=== PATIENT | male | born 1960 | race Caucasian/White ===

== ENCOUNTER 2016-08-13 01:52 | Emergency (ER) | payer OTHER ==
--- NOTE | 2016-08-13 05:04 | ED CLINICAL REPORT ---
Clinical Report - Physicians/Mid Levels [facility] [address] [place] [address] 08/13/2016 1:54 Patient: LAURENT PERES Time Seen: 02:20. Arrived- By private vehicle. Historian- patient. HISTORY OF PRESENT ILLNESS Chief Complaint: UPPER EXTREMITY SWELLING and ; PAIN. Modifying factors- worsened by movement of arm. Not made better by anything. Severity is described as being moderate in degree. The quality is noted to be "pain". This started several days ago and is still present and now worse. Symptoms located in the area of the left arm, left forearm, left wrist and left hand. No chest pain, difficulty breathing, sensory loss or motor loss. He has had redness and swelling. (PT does admit that he has not been elevating the arm much, because it hurts his elbow.). Patient notes an injury (PT is 4 days post-op after a wrist surgery. Pt states he felt as though the splint had become too tight, and now, has noticed swelling and erythema of the arm above the splint/dressing.). Similar symptoms previously: None. Recent medical care: The patient was seen recently at another facility. ( Pt's surgeon was Dr. Paul.). REVIEW OF SYSTEMS No fever, chills, eye discomfort, headache or sore throat. No cough, skin rash, enlarged lymph nodes, neck pain or abdominal pain. No nausea, vomiting, diarrhea, black stools or difficulty with urination. No urinary frequency, hematuria or bloody stools. All systems otherwise negative, except as recorded above. PAST HISTORY Problems: Diverticulitis. Tetanus Status. Additional Surgeries: ABD surgery . Colostomy. Left wrist surgery . R arm. Medications: LORazepam Oral 1 mg, PRN. OxyCODONE HCl Oral 10 mg, every 3 hrs . Allergies: No Known Drug Allergy. SOCIAL HISTORY Smoker- current status unknown. No alcohol use or drug use. ADDITIONAL NOTES The nursing notes have been reviewed. PHYSICAL EXAM Vital Signs: 08/13/2016 02:26 BP: 117/81. HR: 73. RR: 16. O2 saturation: 93%. Temp: 98.5 F. Pain level now: 03/18. Have been reviewed. Appearance: Alert. Oriented X3. No acute distress. Eyes: Pupils equal, round and reactive to light. Eyes normal inspection. ENT: Nose normal. Neck: Normal inspection. CVS: Normal heart rate and rhythm. Heart sounds normal. Respiratory: No respiratory distress. Breath sounds normal. Abdomen: Soft and nontender. Back: Normal inspection. Skin: Skin intact. Skin warm and dry. Extremities: Moderate non-pitting edema of the left upper extremity involving the hand, forearm and arm. mild erythema is noted above the pt's splint, which extends to the mid-forearm. No edema is present beneath the splint/dressing, which is removed. Incisions are clean, dry and intact, with no erythema. Extremities otherwise negative. Neuro: Oriented X 3. No motor deficit. No sensory deficit. LABS, X-RAYS, AND EKG Lt Forearm X-ray: No fracture. Normal alignment. No bony lesion, air in the soft tissue or foreign body. Soft tissues normal. Joint spaces normal. Views: AP and lateral. Technique: good. The X-rays were independently viewed by me and interpreted contemporaneously by me. Prior films were not available for comparison. Pulse Oximetry: 08/13/2016 02:26 O2 saturation: 93%. (FIO2 - room air). Interpretation: normal. PROGRESS AND PROCEDURES Course of Care: X-ray was unremarkable. Pt was given a dose of vancomycin, and a new bandage and splint were placed. Pt was treated symptomatically with IV Toradol and Dilaudid. Pt was advised that he will need to call Dr. Paul's office first thing Sunday morning for a recheck. He will take oral abx at home, but is admonished that should his sx worsen, he should be re-evaluated at the emergency dept without delay. Patient and friend counseled in person regarding the patient's stable condition, test results, diagnosis and need for follow-up. Concerns were addressed. Old medical records reviewed. Disposition: Discharged. Condition: stable and improved. CLINICAL IMPRESSION Post-operative complication from musculoskeletal surgery- cellulitis. INSTRUCTIONS Apply ice for 20 minutes three times a day as needed and until better. Don't apply ice directly to skin and don't use while asleep. (Your wound looks good, but your splint and dressing became too tight as you began to swell. These have been replaced, and you've been started on antibiotics for your infection, but will need to follow up with your surgeon as soon as possible.). Warnings: Further evaluation is necessary. It is very important to follow up with a physician. SEDATIVE MEDICATION: You were given sedative medication during your visit. Do not drive or operate dangerous machinery for 6 hours. GENERAL WARNINGS: Return or contact your physician immediately if your condition worsens or changes unexpectedly, if not improving as expected, or if other problems arise. Your Current Medications: CONTINUE TAKING THE FOLLOWING MEDICATIONS: LORazepam Oral : 1 mg PRN. OxyCODONE HCl Oral : 10 mg every 3 hrs. Prescription Medications: Trimethoprim-Sulfamethoxazole DS: take 1 tablet orally every 12 hours for 7 days. No refill. Hydromorphone 2 mg: take 1-2 tablets orally every 6 hours as needed for pain. Dispense fifteen (15). No refill. Follow-up: Follow up with a hand surgeon. Call for the next available appointment. Understanding of the discharge instructions verbalized by patient. (Electronically signed by Lori Arroyo MD 08/17/2016 21:33)
--- NOTE | 2016-08-13 05:05 | ED ORDER SUMMARY ---
..... Patient: LAURENT PERES OrderSheet [facility] VisitID: [id number] [address] [place] [address] 55y, M Registration Date/Time: 08/13/2016 ORDER SHEET Weight: 74.8 kg (stated) Allergies: No Known Drug Allergy GENERAL ORDERS: Forearm Left Urgent (03:08 08/13/2016 Gio SOMERS) (Ack 3:15 Temitopeekimana) (3:26 RFay) Splint (UE) (Left) (Ulnar Gutter) (with bulky dressing beneath and Adaptic over the incision) (04:58 08/13/2016 Gio SOMERS) (5:28 JQuivey R.N.) MEDICATION ORDERS: IV FLUIDS: Vancomycin IV 1.5 gm/500 mL (NOW) (03:08 08/13/2016 Gio SOMERS) (Ack 3:36 JQuivey R.N.) (4:05 JQuivey R.N.) Dilaudid IV 2 mg (HIGH ALERT MEDICATION, NOW) (03:08 08/13/2016 Gio SOMERS) (Ack 3:36 JQuivey R.N.) (3:55 JQuivey R.N.) Toradol IV 30 mg (NOW) (03:08 08/13/2016 Gio SOMERS) (Ack 3:36 JQuivey R.N.) (3:55 JQuivey R.N.) Dilaudid IV 0.5 mg (HIGH ALERT MEDICATION, NOW) (05:49 08/13/2016 Gio SOMERS) (Ack 5:52 JQuivey R.N.) (6:08 JQuivey R.N.) ORDER SHEET NOTES: [Electronically signed by Bryant Garcia R.N. (06:27 08/13/2016)] [Electronically signed by Lori Arroyo MD (21:33 08/17/2016)] [Electronically locked/signed by Bryant Garcia R.N. (06:27 08/13/2016)]
--- NOTE | 2016-08-13 05:05 | ED NURSING NOTES ---
Clinical Report - Nurses [facility] [address] [place] [address] 08/13/2016 1:54 [id number] Triage time 02:21 Aug 13 2016. --02:23 Bryant Montanez R.N. Acuity: LEVEL 3. Chief Complaint: LEFT UPPER EXTREMITY PAIN. 02:32. Alert. SEPSIS SCREEN: Sepsis Screen. Negative (no infection suspected/documented). KIRA COMA SCORE: [place] Coma Scale: 15- eyes open spontaneously (4); best verbal response- oriented x 4 (5); best motor response- obeys commands (6). --02:32 Bryant Garcia R.N. 02:26 08/13/16. BP: 117/81. HR: 73. RR: 16. O2 saturation: 93% on room air. Temp: 98.5 F (oral). Pain level now: 03/18. --02:32 Bryant Garcia R.N. Weight: 74.8 kg stated. Height/Length: 70 inches Per Patient. BMI: 23.7. --02:30 Bryant Garcia R.N. Medications OxyCODONE HCl Oral 10 mg, every 3 hrs . --02:29 Bryant Garcia R.N. LORazepam Oral 1 mg, PRN. --02:29 Bryant Garcia R.N. Medication/allergy information source: the patient. --02:32 Bryant Garcia R.N. Allergies No Known Drug Allergy. --02:28 Bryant Garcia R.N. History Arrived by private vehicle. Historian: patient. Accompanied by friend. Primary physician ([facility]/Dr. Luo). ( (L) Forearm Pain post-surgical 3 days ago). --02:23 Bryant Montanez R.N. Accompanied by friend. This occurred (Since about 12 hrs following surgery on ). 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 Took Tylenol. (Oxycodone). PAST MEDICAL HX: Tetanus status: up-to-date. Immunizations: up-to-date. SOCIAL HX: Current every day light tobacco smoker- less than 1/2 a pack per day. No alcohol use or drug use. No infectious disease exposure. ABUSE ASSESSMENT: No report of abuse. FALL RISK ASSESSMENT: Fall risk assessment completed. No fall risk identified. NUTRITIONAL RISK ASSESSMENT: The nutritional risk assessment revealed no deficiencies. FUNCTIONAL ASSESSMENT: Functional assessment: no impairments noted. LEARNING NEEDS ASSESSMENT: The learning needs assessment revealed no barriers. SKIN INTEGRITY ASSESSMENT: Skin integrity risk assessment completed. No skin integrity risk identified. --02:32 Bryant Garcia R.N. PROBLEMS: Sprain. Tetanus Status. --02:30 Bryant Garcia R.N. Diverticulitis. --02:31 Bryant Garcia R.N. ADDITIONAL SURGERIES: Left wrist surgery . R arm. --02:30 Bryant Garcia R.N. ABD surgery . Colostomy. --02:31 Bryant Garcia R.N. Interventions ID band on patient. To treatment room. --02:32 Bryant Garcia R.N. PHYSICAL ASSESSMENT 02:33. Ambulatory to room. Patient gowned. GENERAL / NEURO / PSYCH: Oriented X 4. Alert. EXTREMITIES: Neuro-vascular status intact to the extremity. Left forearm: swelling. Left hand: swelling. SKIN: Skin intact. Skin is warm and dry. --02:33 Bryant Garcia R.N. NURSING PROGRESS NOTES 02:33. Two patient identifiers checked. Call light placed in reach. Bed placed in lowest position. Brakes of bed on. Patient ready for evaluation- chart flagged. --02:33 Bryant Garcia R.N. 03:17. Patient transported to radiology by stretcher with tech. --03:54 Bryant Garcia R.N. 03:26. Patient returned from radiology by stretcher with tech. --03:54 Bryant Garcia R.N. 03:48 08/13/2016 Site #1 started via IV in the right antecubital space with an 20g angiocath, with aseptic technique and good blood return; one attempt. Blood drawn: rainbow set. Labeled in the presence of the patient and held. Saline lock flushed with 10 mL saline. --03:54 Bryant Garcia R.N. 03:49 08/13/2016 Dilaudid (HYDROmorphone HCl PF) IVP 2 mg given over 2 minute(s) via site #1. Allergies verified, confirmed 5 rights and sedative warning given to the patient. IV patency established. IV site checked: no pain, redness, or swelling. IV flushed thoroughly pre- and post-medication administration. --03:55 Bryant Garcia R.N. 03:51 08/13/2016 Toradol IVP 30 mg given over 2 minute(s) via site #1. Allergies verified and confirmed 5 rights. IV patency established. IV site checked: no pain, redness, or swelling. IV flushed thoroughly pre- and post-medication administration. --03:55 Bryant Garcia R.N. 03:53. Pulse oximeter placed on patient. --03:56 Bryant Garcia R.N. 03:56. Oxygen administered by nasal cannula at 2 liters. --03:56 Bryant Garcia R.N. 04:02 08/13/2016 Started 1.5 gm of Vancomycin IVPB in bag #1 520 mL; at 353 mL/hr over 1.5 hour(s) via site #1 via IV pump. Allergies verified and confirmed 5 rights. IV patency established. IV site checked: no pain, redness, or swelling. IV flushed thoroughly pre- and post-medication administration. --04:05 Bryant Garcia R.N. Applied clean bulky dressing consisting of adaptic and 4x4 gauze. Secured with tape and kerlix. --05:32 Ramiro Peralta, ER Transfer Car Operator Ralph joyce fiberglass upper extremity splint applied to right wrist by tech. Distal pulses intact, sensation intact and motor within normal limits. --05:32 Ramiro Peralta, MEG Transfer Car Operator 05:45 08/13/16. HR: 76. RR: 16. O2 saturation: 95% on nasal cannula at 2 liters/minute. --05:45 Bryant Garcia R.N. The patient is calm and resting quietly. GENERAL / NEURO / PSYCH: Alert. Oriented X 4. RESPIRATORY: No respiratory distress. SKIN: Skin is warm and dry. --05:45 Bryant Garcia R.N. 05:51. Oxygen discontinued. --05:58 Bryant Garcia R.N. 06:02. The patient is calm and resting quietly. GENERAL / NEURO / PSYCH: Alert. Oriented X 4. RESPIRATORY: No respiratory distress. EXTREMITIES: Neuro-vascular status intact to the extremity. SKIN: Skin is warm and dry. --06:06 Bryant aGrcia R.N. 05:50 08/13/2016 Vancomycin IVPB Discontinued: bag #1 infused. Total amount infused: 520ml mL. IV patency established. IV site checked: no pain, redness, or swelling. IV flushed thoroughly. --06:07 Bryant Garcia R.N. 05:56 08/13/2016 Dilaudid (HYDROmorphone HCl PF) IVP 0.5 mg given over 2 minute(s) via site #1. Allergies verified, confirmed 5 rights and sedative warning given to the patient and patient's radial router operator. IV patency established. IV site checked: no pain, redness, or swelling. IV flushed thoroughly pre- and post-medication administration. --06:08 Bryant Garcia R.N. DISPOSITION / DISCHARGE Departure time: 06:05. Condition at departure: stable. No learning barriers present. Discharge instructions provided and reviewed with the patient. Reviewed medication(s) side effects, precautions, dosing and course information. Prescription(s) given to the patient. Patient verbalized understanding. Written instructions provided in [place]. The patient was discharged home and accompanied by radial router operator. He left the Emergency Department ambulatory and via private vehicle. FALL RISK ASSESSMENT: Fall risk assessment completed. No fall risk identified. --06:05 Bryant Garcia R.N. 05:57 08/13/16. BP: 116/81. HR: 71. RR: 16. O2 saturation: 93% on room air. --06:05 Bryant Garcia R.N. 06:01 08/13/2016 Site #1 removed upon discharge. Catheter intact. Bandage applied. --06:06 Bryant Garcia R.N. Locked/Released at 08/13/2016 6:27 by Bryant Garcia R.N.
--- NOTE | 2016-08-13 05:05 | ED ORDER SUMMARY ---
..... Patient: LAURENT PERES OrderSheet [facility] VisitID: [id number] [place] [address] 55y, M Registration Date/Time: 08/13/2016 ORDER SHEET Weight: 74.8 kg (stated) Allergies: No Known Drug Allergy GENERAL ORDERS: Forearm Left Urgent (03:08 08/13/2016 Gio SOMERS) (Ack 3:15 Temitopeekimana) (3:26 RFay) Splint (UE) (Left) (Ulnar Gutter) (with bulky dressing beneath and Adaptic over the incision) (04:58 08/13/2016 Gio SOMERS) (5:28 JQuivey R.N.) MEDICATION ORDERS: IV FLUIDS: Vancomycin IV 1.5 gm/500 mL (NOW) (03:08 08/13/2016 Gio SOMRES) (Ack 3:36 JQuivey R.N.) (4:05 JQuivey R.N.) Dilaudid IV 2 mg (HIGH ALERT MEDICATION, NOW) (03:08 08/13/2016 Gio SOMERS) (Ack 3:36 JQuivey R.N.) (3:55 JQuivey R.N.) Toradol IV 30 mg (NOW) (03:08 08/13/2016 Gio SOMERS) (Ack 3:36 JQuivey R.N.) (3:55 JQuivey R.N.) Dilaudid IV 0.5 mg (HIGH ALERT MEDICATION, NOW) (05:49 08/13/2016 Gio SOMERS) (Ack 5:52 JQuivey R.N.) (6:08 JQuivey R.N.) ORDER SHEET NOTES: [Electronically signed by Bryant Garcia R.N. (06:27 08/13/2016)] [Electronically signed by Lori Arroyo MD (21:33 08/17/2016)] [Electronically locked/signed by Bryant Garcia R.N. (06:27 08/13/2016)]
--- NOTE | 2016-08-13 05:05 | ED NURSING NOTES ---
Clinical Report - Nurses [address] [place] [address] 08/13/2016 1:54 [id number] TRIAGE Triage time 02:21 Aug 13 2016. --02:23 Bryant Montanez R.N. Acuity: LEVEL 3. Chief Complaint: LEFT UPPER EXTREMITY PAIN. 02:32. Alert. SEPSIS SCREEN: Sepsis Screen. Negative (no infection suspected/documented). KIRA COMA SCORE: [place] Coma Scale: 15- eyes open spontaneously (4); best verbal response- oriented x 4 (5); best motor response- obeys commands (6). --02:32 Bryant Garcia R.N. 02:26 08/13/16. BP: 117/81. HR: 73. RR: 16. O2 saturation: 93% on room air. Temp: 98.5 F (oral). Pain level now: 03/18. --02:32 Bryant Garcia R.N. Weight: 74.8 kg stated. Height/Length: 70 inches Per Patient. BMI: 23.7. --02:30 Bryant Garcia R.N. Medications OxyCODONE HCl Oral 10 mg, every 3 hrs . --02:29 Bryant Garcia R.N. LORazepam Oral 1 mg, PRN. --02:29 Bryant Garcia R.N. Medication/allergy information source: the patient. --02:32 Bryant Garcia R.N. Allergies No Known Drug Allergy. --02:28 Bryant Garcia R.N. History Arrived by private vehicle. Historian: patient. Accompanied by friend. Primary physician ([facility]/Dr. Luo). ( (L) Forearm Pain post-surgical 3 days ago). --02:23 Bryant Montanez R.N. Accompanied by friend. This occurred (Since about 12 hrs following surgery on ). 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 Took Tylenol. (Oxycodone). PAST MEDICAL HX: Tetanus status: up-to-date. Immunizations: up-to-date. SOCIAL HX: Current every day light tobacco smoker- less than 1/2 a pack per day. No alcohol use or drug use. No infectious disease exposure. ABUSE ASSESSMENT: No report of abuse. FALL RISK ASSESSMENT: Fall risk assessment completed. No fall risk identified. NUTRITIONAL RISK ASSESSMENT: The nutritional risk assessment revealed no deficiencies. FUNCTIONAL ASSESSMENT: Functional assessment: no impairments noted. LEARNING NEEDS ASSESSMENT: The learning needs assessment revealed no barriers. SKIN INTEGRITY ASSESSMENT: Skin integrity risk assessment completed. No skin integrity risk identified. --02:32 Bryant Garcia R.N. PROBLEMS: Sprain. Tetanus Status. --02:30 Bryant Garcia R.N. Diverticulitis. --02:31 Bryant Garcia R.N. ADDITIONAL SURGERIES: Left wrist surgery . R arm. --02:30 Bryant Garcia R.N. ABD surgery . Colostomy. --02:31 Bryant Garcia R.N. Interventions ID band on patient. To treatment room. --02:32 Bryant Garcia R.N. PHYSICAL ASSESSMENT 02:33. Ambulatory to room. Patient gowned. GENERAL / NEURO / PSYCH: Oriented X 4. Alert. EXTREMITIES: Neuro-vascular status intact to the extremity. Left forearm: swelling. Left hand: swelling. SKIN: Skin intact. Skin is warm and dry. --02:33 Bryant Garcia R.N. NURSING PROGRESS NOTES 02:33. Two patient identifiers checked. Call light placed in reach. Bed placed in lowest position. Brakes of bed on. Patient ready for evaluation- chart flagged. --02:33 Bryant Garcia R.N. 03:17. Patient transported to radiology by stretcher with tech. --03:54 Bryant Garcia R.N. 03:26. Patient returned from radiology by stretcher with tech. --03:54 Bryant Garcia R.N. 03:48 08/13/2016 Site #1 started via IV in the right antecubital space with an 20g angiocath, with aseptic technique and good blood return; one attempt. Blood drawn: rainbow set. Labeled in the presence of the patient and held. Saline lock flushed with 10 mL saline. --03:54 Bryant Garcia R.N. 03:49 08/13/2016 Dilaudid (HYDROmorphone HCl PF) IVP 2 mg given over 2 minute(s) via site #1. Allergies verified, confirmed 5 rights and sedative warning given to the patient. IV patency established. IV site checked: no pain, redness, or swelling. IV flushed thoroughly pre- and post-medication administration. --03:55 Bryant Garcia R.N. 03:51 08/13/2016 Toradol IVP 30 mg given over 2 minute(s) via site #1. Allergies verified and confirmed 5 rights. IV patency established. IV site checked: no pain, redness, or swelling. IV flushed thoroughly pre- and post-medication administration. --03:55 Bryant Garcia R.N. 03:53. Pulse oximeter placed on patient. --03:56 Bryant Garcia R.N. 03:56. Oxygen administered by nasal cannula at 2 liters. --03:56 Bryant Garcia R.N. 04:02 08/13/2016 Started 1.5 gm of Vancomycin IVPB in bag #1 520 mL; at 353 mL/hr over 1.5 hour(s) via site #1 via IV pump. Allergies verified and confirmed 5 rights. IV patency established. IV site checked: no pain, redness, or swelling. IV flushed thoroughly pre- and post-medication administration. --04:05 Bryatn Garcia R.N. Applied clean bulky dressing consisting of adaptic and 4x4 gauze. Secured with tape and kerlix. --05:32 Ramiro Peralta, ER Card Placer Ralph joyce fiberglass upper extremity splint applied to right wrist by tech. Distal pulses intact, sensation intact and motor within normal limits. --05:32 Ramiro Peralta, MEG Card Placer 05:45 08/13/16. HR: 76. RR: 16. O2 saturation: 95% on nasal cannula at 2 liters/minute. --05:45 Bryant Garcia R.N. The patient is calm and resting quietly. GENERAL / NEURO / PSYCH: Alert. Oriented X 4. RESPIRATORY: No respiratory distress. SKIN: Skin is warm and dry. --05:45 Bryant Garcia R.N. 05:51. Oxygen discontinued. --05:58 Bryant Garcia R.N. 06:02. The patient is calm and resting quietly. GENERAL / NEURO / PSYCH: Alert. Oriented X 4. RESPIRATORY: No respiratory distress. EXTREMITIES: Neuro-vascular status intact to the extremity. SKIN: Skin is warm and dry. --06:06 Bryant Garcia R.N. 05:50 08/13/2016 Vancomycin IVPB Discontinued: bag #1 infused. Total amount infused: 520ml mL. IV patency established. IV site checked: no pain, redness, or swelling. IV flushed thoroughly. --06:07 Bryant Garcia R.N. 05:56 08/13/2016 Dilaudid (HYDROmorphone HCl PF) IVP 0.5 mg given over 2 minute(s) via site #1. Allergies verified, confirmed 5 rights and sedative warning given to the patient and patient's sales training coordinator. IV patency established. IV site checked: no pain, redness, or swelling. IV flushed thoroughly pre- and post-medication administration. --06:08 Bryant Garcia R.N. DISPOSITION / DISCHARGE Departure time: 06:05. Condition at departure: stable. No learning barriers present. Discharge instructions provided and reviewed with the patient. Reviewed medication(s) side effects, precautions, dosing and course information. Prescription(s) given to the patient. Patient verbalized understanding. Written instructions provided in Italian. The patient was discharged home and accompanied by sales training coordinator. He left the Emergency Department ambulatory and via private vehicle. FALL RISK ASSESSMENT: Fall risk assessment completed. No fall risk identified. --06:05 Bryant Garcia R.N. 05:57 08/13/16. BP: 116/81. HR: 71. RR: 16. O2 saturation: 93% on room air. --06:05 Bryant Garcia R.N. 06:01 08/13/2016 Site #1 removed upon discharge. Catheter intact. Bandage applied. --06:06 Bryant Garcia R.N. Locked/Released at 08/13/2016 6:27 by Bryant Garcia R.N.
--- NOTE | 2016-08-13 07:15 | DIAGNOSTIC IMAGING REPORT ---
PROCEDURE: XR FOREARM - LEFT INDICATION: TRAUMA/INJURY TECHNIQUE: AP and lateral views. COMPARISON: None. FINDINGS: There is absence of most of the proximal carpal row, including scaphoid, lunate, and triquetrum. This is associated with multiple residual fragments or dystrophic calcification at the surgical site and in the dorsal soft tissues. The rest of the osseous structures of the left forearm are normal. IMPRESSION: 1. 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 2. Otherwise negative left forearm. 3. Findings discussed with Dr. Lori Arroyo.
--- NOTE | 2016-08-17 21:33 | ED MAR SUMMARY ---
..... Medication Administration Record [facility] [address] [place] [address] Patient: LAURENT PERES Visit ID: [id number] 55y, M Weight: 74.8 kg Height/Length: 70 in BMI: 23.7 ALLERGIES: No Known Drug Allergy Given 03:49 08/13/2016 Bryant Garcia R.NLei Medication Administered: DILAUDID [IVP] (HYDROMORPHONE HCL PF), Dose: 2 mg IVP over 2 minute(s), Site: #1 right AC. Medication Ordered: Dilaudid IV 2 mg (HIGH ALERT MEDICATION, NOW). Given 03:51 08/13/2016 Bryant Garcia R.N. Medication Administered: TORADOL [IVP], Dose: 30 mg IVP over 2 minute(s), Site: #1 right AC. Medication Ordered: Toradol IV 30 mg (NOW). Start 04:02 08/13/2016 Bryant Garcia R.N., Stop 05:50 08/13/2016 Bryant Garcia R.N. Medication Administered: VANCOMYCIN [IVPB], Dose: 1.5 gm IVPB over 1.5 hour(s), Rate: 353 mL/hr, Dispensed: 520 mL bag, Site: #1 right AC. Medication Ordered: Vancomycin IV 1.5 gm/500 mL (NOW). Given 05:56 08/13/2016 Bryant Garcia R.NLei Medication Administered: DILAUDID [IVP] (HYDROMORPHONE HCL PF), Dose: 0.5 mg IVP over 2 minute(s), Site: #1 right AC. Medication Ordered: Dilaudid IV 0.5 mg (HIGH ALERT MEDICATION, NOW).
--- NOTE | 2016-08-17 21:33 | ED DISCHARGE INSTRUCTIONS ---
Patient: ENRIQUETASYLVIAMARCOS LAURENT Cardenas General Instructions [facility] VisitID: [id number] [place] [address] 55y, M Registration Date/Time: 08/13/2016 Post-operative complication from musculoskeletal surgery- cellulitis. INSTRUCTIONS Apply ice for 20 minutes three times a day as needed and until better. Don't apply ice directly to skin and don't use while asleep. (Your wound looks good, but your splint and dressing became too tight as you began to swell. These have been replaced, and you've been started on antibiotics for your infection, but will need to follow up with your surgeon as soon as possible.). Warnings: Further evaluation is necessary. It is very important to follow up with a physician. SEDATIVE MEDICATION: You were given sedative medication during your visit. Do not drive or operate dangerous machinery for 6 hours. GENERAL WARNINGS: Return or contact your physician immediately if your condition worsens or changes unexpectedly, if not improving as expected, or if other problems arise. Your Current Medications: CONTINUE TAKING THE FOLLOWING MEDICATIONS: LORazepam Oral : 1 mg PRN. OxyCODONE HCl Oral : 10 mg every 3 hrs. Prescription Medications: Trimethoprim-Sulfamethoxazole DS: take 1 tablet orally every 12 hours for 7 days. No refill. Hydromorphone 2 mg: take 1-2 tablets orally every 6 hours as needed for pain. Dispense fifteen (15). No refill. Follow-up: Follow up with a hand surgeon. Call for the next available appointment. Understanding of the discharge instructions verbalized by patient. (Electronically signed by Lori Arroyo MD 08/17/2016 21:33)
--- NOTE | 2016-08-17 21:33 | ED DISCHARGE INSTRUCTIONS ---
Patient: ENRIQUETASYLVIAMARCOS LAURENT Cardenas General Instructions Located Within [facility] VisitID: [id number] [place] [address] 55y, M Registration Date/Time: 08/13/2016 Post-operative complication from musculoskeletal surgery- cellulitis. INSTRUCTIONS Apply ice for 20 minutes three times a day as needed and until better. Don't apply ice directly to skin and don't use while asleep. (Your wound looks good, but your splint and dressing became too tight as you began to swell. These have been replaced, and you've been started on antibiotics for your infection, but will need to follow up with your surgeon as soon as possible.). Warnings: Further evaluation is necessary. It is very important to follow up with a physician. SEDATIVE MEDICATION: You were given sedative medication during your visit. Do not drive or operate dangerous machinery for 6 hours. GENERAL WARNINGS: Return or contact your physician immediately if your condition worsens or changes unexpectedly, if not improving as expected, or if other problems arise. Your Current Medications: CONTINUE TAKING THE FOLLOWING MEDICATIONS: LORazepam Oral : 1 mg PRN. OxyCODONE HCl Oral : 10 mg every 3 hrs. Prescription Medications: Trimethoprim-Sulfamethoxazole DS: take 1 tablet orally every 12 hours for 7 days. No refill. Hydromorphone 2 mg: take 1-2 tablets orally every 6 hours as needed for pain. Dispense fifteen (15). No refill. Follow-up: Follow up with a hand surgeon. Call for the next available appointment. Understanding of the discharge instructions verbalized by patient. (Electronically signed by Lori Arroyo MD 08/17/2016 21:33)
--- NOTE | 2016-08-17 21:33 | ED MED RECONCILIATION SUMMARY ---
Patient: LAURENT PERES Medication Reconciliation Report [facility] VisitID: [id number] [address] [place] [address] 55y, M Registration Date/Time: 08/13/2016 Weight: 74.8 kg Height/Length: 70 in. BMI: 23.7 ALLERGIES: No Known Drug Allergy The patient's Home Medications are listed below: CONTINUE TAKING THE FOLLOWING MEDICATIONS: LORazepam Oral 1 mg, PRN OxyCODONE HCl Oral 10 mg, every 3 hrs The source(s) of the original Home Medication information: patient The following Medications were given to the patient in the Emergency Department: Dilaudid [IVP] IVP 2 mg, administered: 08/13/2016 3:49:00 AM Toradol [IVP] IVP 30 mg, administered: 08/13/2016 3:51:00 AM Vancomycin [IVPB] IVPB bolus 0, then 1.5 gm 353 mL/hr, administered: 08/13/2016 4:02:00 AM Dilaudid [IVP] IVP 0.5 mg, administered: 08/13/2016 5:56:00 AM The following Medications were prescribed to the patient: Trimethoprim-Sulfamethoxazole DS: take 1 tablet orally every 12 hours for 7 days. No refill. -- Lori Arroyo MD Hydromorphone 2 mg: take 1-2 tablets orally every 6 hours as needed for pain. Dispense fifteen (15). No refill. -- Lori Arroyo MD
--- NOTE | 2016-08-17 21:33 | ED MED RECONCILIATION SUMMARY ---
Patient: LAURENT PERES Medication Reconciliation Report [facility] VisitID: [id number] [address] [place] [address] 55y, M Registration Date/Time: 08/13/2016 Weight: 74.8 kg Height/Length: 70 in. BMI: 23.7 ALLERGIES: No Known Drug Allergy The patient's Home Medications are listed below: CONTINUE TAKING THE FOLLOWING MEDICATIONS: LORazepam Oral 1 mg, PRN OxyCODONE HCl Oral 10 mg, every 3 hrs The source(s) of the original Home Medication information: patient The following Medications were given to the patient in the Emergency Department: Dilaudid [IVP] IVP 2 mg, administered: 08/13/2016 3:49:00 AM Toradol [IVP] IVP 30 mg, administered: 08/13/2016 3:51:00 AM Vancomycin [IVPB] IVPB bolus 0, then 1.5 gm 353 mL/hr, administered: 08/13/2016 4:02:00 AM Dilaudid [IVP] IVP 0.5 mg, administered: 08/13/2016 5:56:00 AM The following Medications were prescribed to the patient: Trimethoprim-Sulfamethoxazole DS: take 1 tablet orally every 12 hours for 7 days. No refill. -- Lori Arroyo MD Hydromorphone 2 mg: take 1-2 tablets orally every 6 hours as needed for pain. Dispense fifteen (15). No refill. -- Lori Arroyo MD
--- NOTE | 2016-08-17 21:33 | ED MAR SUMMARY ---
..... Medication Administration Record [facility] [address] [place] [address] Patient: LAURENT PERES Visit ID: [id number] 55y, M Weight: 74.8 kg Height/Length: 70 in BMI: 23.7 ALLERGIES: No Known Drug Allergy Given 03:49 08/13/2016 Bryant Garcia R.NLei Medication Administered: DILAUDID [IVP] (HYDROMORPHONE HCL PF), Dose: 2 mg IVP over 2 minute(s), Site: #1 right AC. Medication Ordered: Dilaudid IV 2 mg (HIGH ALERT MEDICATION, NOW). Given 03:51 08/13/2016 Bryant Garcia R.N. Medication Administered: TORADOL [IVP], Dose: 30 mg IVP over 2 minute(s), Site: #1 right AC. Medication Ordered: Toradol IV 30 mg (NOW). Start 04:02 08/13/2016 Bryant Garcia R.N., Stop 05:50 08/13/2016 Bryant Garcia R.N. Medication Administered: VANCOMYCIN [IVPB], Dose: 1.5 gm IVPB over 1.5 hour(s), Rate: 353 mL/hr, Dispensed: 520 mL bag, Site: #1 right AC. Medication Ordered: Vancomycin IV 1.5 gm/500 mL (NOW). Given 05:56 08/13/2016 Bryant Garcia R.NLei Medication Administered: DILAUDID [IVP] (HYDROMORPHONE HCL PF), Dose: 0.5 mg IVP over 2 minute(s), Site: #1 right AC. Medication Ordered: Dilaudid IV 0.5 mg (HIGH ALERT MEDICATION, NOW).
== END 2016-08-13 06:05 | disposition home or self-care (01) ==
LOC: ED SRH 01:52
DX: M96.89 Other intraoperative and postprocedural complications and disorders of the musculoskeletal system (principal); L03.114 Cellulitis of left upper limb; F17.200 Nicotine dependence, unspecified, uncomplicated; Z88.5 Allergy status to narcotic agent